=== PATIENT | male | born 1960 | race Two or more races ===

== ENCOUNTER 2024-07-07 10:21 | Emergency (ER) | payer MEDICAID, SELFPAY ==
--- NOTE | 2024-07-07 10:31 | EKG_ITS ---
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
[2024-07-07 10:41] VITALS: BP 150/94; PULSE 90; RESP 17; TEMP 36.6; O2SAT 96
[2024-07-07 10:42] VITALS: BMI 33.1
--- NOTE | 2024-07-07 10:51 | XR_ITS ---
Examination: Ribs, left, with PA chest, 5 views Technique: Chest PA, RIBS AP, RPO, LPO, AP coned lower ribs 5 views Exam date and time: July 07, 2024 1103 hours INDICATIONS: Patient fell today with injury to the left chest left rib pain Findings: Normal heart size No pneumothorax Moderate osteopenia No acute rib fractures IMPRESSION: No pneumothorax pulmonary contusion or hemothorax No acute rib fractures
--- NOTE | 2024-07-07 10:51 | PD.EDRME ---
Rapid Medical Screening Exam RME Arrival date/time: 07/07/24 10:21 63-year-old male presents emerged part today complains of left-sided rib pain and chest pain patient reports that he had a fall today patient reports fall was ground-level Chief Complaint: Shortness of Breath/Dyspnea Time Seen by Provider: 07/07/24 10:31 Vital signs: Vital Signs Temperature 97.9 F 07/07/24 10:41 Pulse Rate 90 07/07/24 10:41 Respiratory Rate 17 07/07/24 10:41 Blood Pressure 150/94 H 07/07/24 10:41 Pulse Oximetry (%) 96 07/07/24 10:41 Oxygen Delivery Method Room Air 07/07/24 10:41
[2024-07-07 12:36] LABS: Troponin I < 0.002 ng/mL (0.0-0.045)
--- NOTE | 2024-07-07 12:46 | XR_ITS ---
Examination: CT chest, without intravenous contrast. Sagittal and coronal 2-D reconstructions. Exam date and time: July 07, 2024 1321 hours INDICATIONS: Patient fell today with injury to the chest, chest pain CTDI:vol (mGy) 14.6 DLP: (mGycm) 503 Technique: Multiple 3.0 mm axial sections of the chest to been obtained. Bone and lung density settings are obtained. Sagittal and coronal 2-D reconstructions have been obtained. Low dose protocols were performed. One or more of the following dose reduction techniques were used; automated exposure control, adjustment of the mA and/or KV according to patient size, use of iterative reconstruction technique. Findings: Thoracic aorta pulmonary arteries appear intact on this limited noncontrast study No hemopericardium No pneumothorax pulmonary contusion or hemothorax The manubrium, the body the sternum and thoracic vertebral bodies appear intact Visualized ribs appear intact No liver splenic or renal laceration Gallstones Visualized abdominal aorta intact IMPRESSION: Thoracic aorta pulmonary arteries appear intact on this noncontrast study No hemopericardium, pneumothorax, pulmonary contusion or hemothorax Osseous structures appear intact
--- NOTE | 2024-07-07 12:49 | PD.EDSOB ---
ED SOB =RME/HPI General Chief Complaint: Shortness of Breath/Dyspnea Stated Complaint: LEFT RIB INJURY, SOB Time Seen by Provider: 07/07/24 10:31 Arrival date/time: 07/07/24 10:21 63 year old male present to emergency room with c/o of left rib injury today. patient report GLF hitting rib on cement object. LOCATION: Rib SEVERITY: Symptoms are described as being severe with limitations on activities of daily living CONTEXT: The patient is unable to identify any inciting events. DURATION/TIMING: The symptoms started approximately 1 day ASSOCIATED SYMPTOMS: The patient is unable to identify any other associated symptoms. MODIFYING FACTORS: The patient is unable to identify any alleviating or aggravating symptoms. PERTINENT ROS: no fevers, no cough, no pleuritic pain, no ripping or tearing sensations, denies any lower extremity edema and no unilateral swelling, no chest pain/shortness of breath no nausea,vomiting, diarrhea, no dizziness/headache no rash no loc/syncope episode no abd/back pain REVIEW OF SYSTEMS: See History of Present Illness - with the exception of those mentioned in the history of present illness, all other systems reviewed and reported as negative GENERAL: In general the patient is awake, interactive, in an emergency department gurney. HEAD/EYES/EARS/NOSE/THROAT: normo-cephalic, atraumatic, mucus membranes are moist, anicteric, palpebral conjunctiva is pink, trachea is midline. CARDIOVASCULAR: regular rate and regular rhythm, no murmurs, heart sounds are not distant, strong pulses in all four extremities that are equal and symmetric bilateral upper and lower extremities, normal capillary refill. CHEST/PULMONARY: normal chest rise and fall, good air movement, clear to auscultation bilaterally, normal inspiratory to expiratory ratios without evidence of respiratory distress. NECK: No midline/Paraspinal tenderness, no step off ROM/Strenght intact No Kernig and bruzinski sign. No trauma ABDOMEN: soft, not tender, no masses appreciated BACK: + Left rib tenderness, normal range of motion without pain. NEUROLOGICAL: cranio-facial features are symmetric, moves all four extremities equally without obvious limitations or weakness. EXTREMITY: no tenderness to palpation over the long bones or large joints of the bilateral upper and lower extremities, no joint swelling, no joint erythema, no signs of trauma, no unilateral leg swelling and no peripheral edema. SKIN: warm, dry, well-perfused, no jaundice, no rash, no telangiectasias or petechia. PSYCH: calm, cooperative, no evidence of psychosis or agitation RME / HPI RME / HPI Narrative: 07/07/24 10:21 63-year-old male presents emerged part today complains of left-sided rib pain and chest pain patient reports that he had a fall today patient reports fall was ground-level Related Data Home Medications ?Medication ?Instructions ?Recorded ?Confirmed HIGH CHOLESTEROL MED PO UD ##0 03/23/14 HTN MED PO UD ##0 03/23/14 Previous Rx's ?Medication ?Instructions ?Recorded Peg 3350/Na Sulf,Bicarb,Cl/Kcl 2,000 ml PO X1 ##1 03/23/14 (Golytely Solution) Allergies Allergy/AdvReac Type Severity Reaction Status Date / Time No Known Allergies Allergy Verified 07/07/24 10:25 Course Course Course Narrative: ct, xray, ekg, trop Quality Measures none Orders Category Date Time Status EKG (ED ONLY) *Do not use* NOW Care 07/07/24 10:[address] chest wo con Stat Exams 07/07/24 12:46 Completed EKG (ED Only) Stat Exams 07/07/24 10:31 Draft XR ribs LT min 3V w CXR1V Stat Exams 07/07/24 10:51 Completed Troponin I Stat Lab 07/07/24 11:30 Completed Reevaluation(s) Reevaluation #1: pt is comfortable with treatment and plan Vital Signs Vital signs: Vital Signs Temperature 97.9 F 07/07/24 10:41 Pulse Rate 90 07/07/24 10:41 Respiratory Rate 17 07/07/24 10:41 Blood Pressure 150/94 H 07/07/24 10:41 Pulse Oximetry (%) 96 07/07/24 10:41 Oxygen Delivery Method Room Air 07/07/24 10:41 Shortness of Breath / Dyspnea MDM Narrative MDM Narrative:: The patient presented following a ground-level fall (GLF) yesterday, during which he struck his rib. There was no loss of consciousness (LOC), no nausea, vomiting, chest pain, shortness of breath, or dizziness. The patient is not on blood thinners. A CT chest, chest X-ray, EKG, and troponin levels were ordered and all returned within normal limits (WNL). Given the absence of concerning findings, the patient was diagnosed with a possible rib contusion. Plan: Conservative treatment with rest, ice, and ibom-aju-brgrvxe pain medications (such as Tylenol or Motrin) as needed. Monitor for any worsening of symptoms, including increasing pain, shortness of breath, or other concerning changes. Follow-up if symptoms persist or if any new symptoms arise. Patient data External records reviewed:: [facility] previous records Clinical information provided by:: patient Social determinants that could affect healthcare access:: none Patient has the following chronic illnesses:: n/a How is presenting disease/condition affected by chronic disease/condition?: uneffected by Evaluation data The following diagnostics were reviewed and interpreted by me:: lab results, radiology exam(s) and EKG tracing(s) Lab and/or radiology exams considered but not ordered:: n/a Interpretation Summary: ct chest, xray rib, trop wnl Medications / Prescriptions Medications or Prescriptions considered but not ordered:: n/a Medication administrations:: n/a Consultations Consultation(s) initiated? (list below): No Diagnosis Shortness of Breath Differential Diagnosis: community acquired pneumonia and other (fx, pthmx, contusion,mi/nstemi) Most likely diagnosis given after review of the tests above:: rib contusion Admission Indicated Admission indicated?: not indicated Admission Request Was there a request for admission?: No Disposition Plan Disposition Plan: Discharge Discharge Attestation Discharge Attestation: The patient and all family members were given an opportunity to ask questions and understood the discharge instructions. Discharge instructions specifically effects, indications for sooner follow up or return to the emergency department, and the expected course of current diagnosis. Patient condition: Stable Discharge Plan Plan Patient Disposition: HOME (Self Care) Health Concerns: Follow with PMD as directed Take tylenol or motrin as need Return to ED if sx worsen Prescriptions/Referrals Prescriptions/Med Rec: No Action HIGH CHOLESTEROL MED PO UD Qty: 0 HTN MED PO UD Qty: 0 Peg 3350/Na Sulf,Bicarb,Cl/Kcl (Golytely Solution) 4,000 ML SOLN.RECON 2,000 ml PO X1 Qty: 1 0RF Referrals: No Primary/Family,Physician [Primary Care Provider] - In 1 week Problem List Clinical Impression: Contusion of rib Patient/Caregiver Discharge Instructions Education Materials: ED Contusion, Rib Print Language: [place] Stand Alone Forms: Brittney Award Info., Patient Portal Info Letter
== END 2024-07-07 15:00 | disposition home or self-care (01) ==
PROVIDERS: Nurse Practitioner Primary Care; Emergency Provider Emergency Medicine
DX: S20.219A Contusion of unspecified front wall of thorax, initial encounter (principal); W18.30XA Fall on same level, unspecified, initial encounter
CPT/HCPCS: 36415; 71101; 71250; 84484; 93005; 99284